=== PATIENT | female | born 1985 | race African-American/Black ===

== ENCOUNTER 2018-05-03 08:20 | Observation (INO) | payer OTHER | END 2018-05-03 10:20 | disposition home or self-care (01) | DRG 566 | LOC: LDRP 08:20 | PROVIDERS: ADMIT Obstetrics & Gynecology; ATTEND Obstetrics & Gynecology | DX: O36.8130 Decreased fetal movements, third trimester, not applicable or unspecified (principal); Z3A.31 31 weeks gestation of pregnancy | CPT/HCPCS: 59025; 76818; 81002; G0378 ==

== ENCOUNTER 2019-09-07 14:38 | Emergency (ER) | payer MEDICAID ==
[~2019-09-07] VITALS: Ht 177.8 cm; Wt 136.1 kg
[2019-09-07 15:43] LABS: Basophils # (auto) 0 uL; Eosinophils # (auto) 0 uL; Hemoglobin 11.6 g/dL (12.2-16.2); Lymphocytes # (auto) 1.3 uL; Lymphocytes % (auto) 27.1 % (10.0-50.0); Mean Corpuscular Hemoglobin 20.1 pg (28.0-32.0); Monocytes # (auto) 0.4 uL; Red Blood Cells 5.77 10^6/uL (4.0-5.20)
[2019-09-07 15:46] LABS: Basophils % (auto) 0.4 % (0.0-2.0); Eosinophils % (auto) 0.6 % (0.0-7.0); Hematocrit 37.1 % (36.0-46.0); Mean Corpuscular Hgb Conc. 31.3 g/dL (32.0-36.0); Mean Corpuscular Volume 64.2 fL (80.0-100.0); Neutrophils % (auto) 63.9 % (37.0-80.0); Platelet Count (auto) 341 10^3/uL (140-450); White Blood Cell 4.8 10^3/uL (4.4-10.8)
[2019-09-07 15:50] LABS: Albumin 3.2 g/dL (3.4-5.0); Calcium 8.9 mg/dL (8.5-10.1); Potassium 3.2 mmol/L (3.5-5.1)
[2019-09-07 15:53] LABS: BUN/Creatinine Ratio 8.5; Bilirubin, Total 0.5 mg/dL (0.2-1.0); Total Protein 7.5 g/dL (6.4-8.2)
[2019-09-07] MEDS ORDERED: HYDROcodone-ACET 10/325MG TAB PO ONE (16:30)
[2019-09-07] MEDS ORDERED: KETOROLAC TROMETH 60MG/2ML VIAL IM ONE (16:30)
[2019-09-07 16:50] LABS: Urine Bacteria NONE SEEN /hpf (None Seen); Urine Blood 2+ /uL (Negative); Urine Hyaline Cast FEW /lpf (0 - 2); Urine Mucus MODERATE (None Seen); Urine Specific Gravity 1.021 (1.001-1.035); Urine WBC 7 /hpf (0 - 5)
[2019-09-07] MEDS ORDERED: SODIUM CHLORIDE 0.9% 1,000 ML IV ONE (17:02)
[2019-09-07] MEDS ORDERED: POTASSIUM EFFERVESENT TAB 25 MEQ PO ONE (17:15)
[2019-09-07 18:52] VITALS: BP 131/65
[2019-09-07] MEDS ORDERED: IBUPROFEN 800 MG TAB PO ONE ×2 (18:56→19:00)
== END 2019-09-07 18:58 | disposition home or self-care (01) ==
LOC: ER 14:38
DX: R10.84 Generalized abdominal pain (principal); G89.4 Chronic pain syndrome; E86.0 Dehydration; E87.6 Hypokalemia; Z88.8 Allergy status to other drugs, medicaments and biological substances
CPT/HCPCS: 36415; 74176; 80053; 81001; 85025